=== PATIENT | female | born 2000 | race Two or more races ===

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

== ENCOUNTER 2021-01-13 | Outpatient (REF) | payer OTHER, SELFPAY ==
[2021-01-14 12:55] LABS: Influenza A PCR NEGATIVE (Negative); Influenza B PCR NEGATIVE (Negative); Resp Syncy Virus RNA Qual PCR POSITIVE (Negative); SARS COV2 PCR INHOUSE NEGATIVE (Negative)
== END 2021-01-13 00:01 | disposition home or self-care (01) ==
LOC: HO.LNP
PROVIDERS: Visit Provider Internal Medicine
DX: K06.9 Disorder of gingiva and edentulous alveolar ridge, unspecified (principal)
CPT/HCPCS: 0241U

== ENCOUNTER 2021-07-01 08:39 | Outpatient (REF) | payer OTHER, SELFPAY ==
[2021-07-01 11:35] LABS: HCG Quantitative < 2 mIU/mL; Thyroid Stimulating Hormone 1.55 uIU/mL (0.32-4.0)
[2021-07-01 11:38] LABS: Syphilis Screen Nonreactive (Nonreactive)
[2021-07-01 11:40] LABS: HIV AB/AG Nonreactive (Nonreactive); HIV Num 1 0.06 S/CO (0.00-0.99)
[2021-07-01 11:42] LABS: HBc Num1 0.09 S/CO (0.00-0.79); Hepatitis B Core Antibody Nonreactive (Nonreactive); ~HepC Num1 0.13 S/CO (0.00-0.79); ~Hepatitis C Antibody Nonreactive (Nonreactive)
[2021-07-01 16:09] LABS: CT PCR NOT DETECTED (Not Detect.); NG PCR NOT DETECTED (Not Detect.)
[2021-07-02 08:11] LABS: DHEA Sulfate 302 mcg/dL (44-286)
[2021-07-07 15:11] LABS: Testosterone, Free 7.2 pg/mL (0.1-6.4); Testosterone, Total 44 ng/dL (2-45)
== END 2021-07-01 08:40 | disposition home or self-care (01) ==
LOC: HO.LAB 08:39
PROVIDERS: Visit Provider Advanced Practice Midwife
DX: Z01.411 Encounter for gynecological examination (general) (routine) with abnormal findings (principal); N92.6 Irregular menstruation, unspecified; L68.0 Hirsutism; Z20.2 Contact with and (suspected) exposure to infections with a predominantly sexual mode of transmission
CPT/HCPCS: 36415; 82627; 83498; 84146; 84402; 84403; 84443; 84702; 86704; 86780; 86803; 87389; 87491; 87591

== ENCOUNTER 2021-08-06 11:12 | Outpatient (REF) | payer OTHER, SELFPAY ==
--- NOTE | ~2021-08-06 | US_ITS ---
EXAMINATION: US PELVIS CLINICAL INFORMATION: Irregular menstruation COMPARISON: Pelvic ultrasound 06/23/2019 TECHNIQUE: Ultrasound of the pelvis is performed using both transabdominal and transvaginal transducers along with Doppler. Transvaginal imaging is performed due to inadequate visualization transabdominally. FINDINGS: Uterus: The uterus is retroverted and measures 7.7 x 3.7 x 5.7 cm. The double wall endometrial thickness is 7 mm. The uterus is smooth in contour and has normal myometrial echogenicity. No visible fibroid. Adnexa: Both ovaries are visualized. There is normal color flow to the adnexa. There is no ovarian torsion. There is no pelvic ascites or fluid collection. Right ovary measures 3 x 4.1 x 2.4 cm. Left ovary measures 2.4 x 3.2 x 1.4 cm. There is a small amount of free fluid in the left adnexa. US/US pelvic and transvaginal IMPRESSION: Small amount of nonspecific free fluid in the left adnexa, which may be physiologic. Otherwise normal pelvic ultrasound.
== END 2021-08-06 11:13 | disposition home or self-care (01) ==
LOC: HO.US 11:12
PROVIDERS: Visit Provider Advanced Practice Midwife
DX: N92.6 Irregular menstruation, unspecified (principal); L68.0 Hirsutism
CPT/HCPCS: 76830; 76856

== ENCOUNTER → 2021-08-20 15:35 | Outpatient (BNVA) | payer OTHER, SELFPAY | PROVIDERS: Visit Provider Advanced Practice Midwife | DX: Z71.2 Person consulting for explanation of examination or test findings (principal); E28.2 Polycystic ovarian syndrome; L68.0 Hirsutism; N92.6 Irregular menstruation, unspecified; R79.89 Other specified abnormal findings of blood chemistry | CPT/HCPCS: 99212 ==

== ENCOUNTER 2022-01-27 23:33 | Emergency (ER) | payer OTHER, SELFPAY ==
[2022-01-27 23:58] VITALS: BP 121/69; PULSE 82; RESP 15; TEMP 37.3; O2SAT 97; BMI 33.7
[2022-01-28 03:24] VITALS: BP 142/81; PULSE 85; RESP 16; TEMP 36.2; O2SAT 98
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
--- NOTE | 2022-01-28 05:03 | PC.NURSE ---
Reviewed discharge instruction with pt, pt verbalized understanding. no sob or chest pain. no sign of distress.
== END 2022-01-28 05:06 | disposition home or self-care (01) ==
PROVIDERS: Emergency Provider Internal Medicine
DX: S39.012A Strain of muscle, fascia and tendon of lower back, initial encounter (principal); V43.02XA Car driver injured in collision with other type car in nontraffic accident, initial encounter; Y93.89 Activity, other specified; Y92.481 Parking lot as the place of occurrence of the external cause; Y99.9 Unspecified external cause status
CPT/HCPCS: 99283